=== PATIENT | female | born 1955 | race Two or more races ===

== ENCOUNTER 2018-11-05 17:16 | Emergency (ER) | payer SELFPAY ==
[~2018-11-05] VITALS: Ht 154.9 cm; Wt 79.4 kg
[2018-11-05 17:28] VITALS: BP 173/85
[2018-11-05] MEDS ORDERED: NAPROXEN 500 MG TABLET PO STA (17:33)
--- NOTE | 2018-11-05 17:58 | PHYS DOC ---
Past Medical History Past Medical History: No Pertinent History (EVANS INFANTE APRN) Past Surgical History: Appendectomy (EVANS INFANTE APRN) Alcohol Use: Rarely Drug Use: None (EVANS INFANTE APRN) Adult General Chief Complaint Chief Complaint: KNEE INJURY HPI HPI Patient is a 63 year old female who presents to the emergency department with complaints of right knee pain and swelling after she slipped on wet surface at the store and fell forward twisting her right knee. Patient denies any head pain, neck pain, loss of consciousness, back pain, shortness of breath, dizziness, or hip pain. Currently she rates her pain a 5 out of 10 on the pain scale, she has not taken anything for relief of pain prior to arrival. (EVANS INFANTE APRN) Review of Systems Review of Systems Constitutional: Denies fever or chills [] Musculoskeletal: Denies back pain; see history of present illness Integument: Denies rash or skin lesions [] Neurologic: Denies headache, focal weakness or sensory changes [] (EVANS INFANTE APRN) Current Medications Current Medications Current Medications Medications (Trade) Dose Ordered Sig/Kerwin Start Time Stop Time Status Last Admin Dose Admin Naproxen (Naprosyn) 500 mg 1X STAT 11/05/18 17:33 11/05/18 17:45 DC 11/05/18 17:41 500 MG (ZECHARIAH CULLEN DO) Allergies Allergies Allergies Coded Allergies Type Severity Reaction Last Updated Verified No Known Drug Allergies 11/05/18 No (ZECHARIAH CULLEN DO) Physical Exam Physical Exam Constitutional: Well developed, well nourished, no acute distress, non-toxic appearance. [] HENT: Normocephalic, atraumatic, bilateral external ears normal, nose normal. [] Eyes: conjunctiva normal, no discharge. [] Neck: Normal range of motion, no tenderness, supple, no stridor. [] Lungs & Thorax: Respirations even and unlabored, no retractions, no respiratory distress Skin: Warm, dry, no erythema, no rash. [] Back: No tenderness to palpation of spine Extremities: No cyanosis, no clubbing, ROM intact; 1+ edema to the anterior right knee, anterior knee tender to palpation, increased pain with range of motion of right knee Neurologic: Alert and oriented X 3, normal motor function, normal sensory functi on, no focal deficits noted. [] Psychologic: Affect normal, judgement normal, mood normal. [] (EVANS INFANTE APRN) Current Patient Data Vital Signs Vital Signs Date Time Temp Pulse Resp B/P (MAP) Pulse Ox O2 Delivery O2 Flow Rate FiO2 11/05/18 17:28 97.8 61 18 173/85 (114) 98 Room Air 97.8 (ZECHARIAH CULLEN DO) EKG EKG [] (EVANS INFANTE APRN) Radiology/Procedures Radiology/Procedures X-ray negative for acute findings or fracture read by Dr. Cullen. [] (EVANS INFANTE APRN) Course & Med Decision Making Course & Med Decision Making Pertinent Labs and Imaging studies reviewed. (See chart for details) R knee contusion Jaxon wrap applied in the ER. Pt reports relief of pain after naproxen. Recommend rest, ice, and elevate. Follow up with Dr. Zurita if sx persist. Pt's family and Patient verbalized an understanding of home care, medications, follow-up, and return to ED instructions and was in agreement with the plan of care. [] (EVANS INFANTE APRN) Dragon Disclaimer Dragon Disclaimer This electronic medical record was generated, in whole or in part, using a voice recognition dictation system. (EVANS INFANTE APRN) Departure Departure Impression: Primary Impression: Contusion of right knee, initial encounter Disposition: HOME, SELF-CARE Condition: STABLE Referrals: HOMERO ZURITA MD Patient Instructions: Contusion, [id number], Knee Pain, [id number]-bf-[id number] Additional Instructions: Fill prescription(s) and use as directed. Recommend application of ice, elevation, and rest of affected extremity. Wear the jaxon wrap that was placed as needed for comfort. Follow up with Dr. Zurita if symptoms persist, return to the ER if your symptoms worsen. Scripts Naproxen (NAPROXEN) 375 Mg Tablet 375 MG PO BID PRN for PAIN for 10 Days, #20 TAB 0 Refills Prov: EVANS INFANTE APRN 11/05/18 Attending Signature Attending Signature I have reviewed the PA/MICROFILM CLERK's note and plan of care. I was available for consultation as needed during the patient's visit in the emergency department. I agree with the clinical impression, plan, and disposition. (ZECHARIAH CULLEN DO) EVANS INFANTE APRN Nov 05, 2018 17:58 ZECHARIAH CULLEN DO Nov 05, 2018 22:23
[2018-11-05] MEDS ORDERED: NAPR-695 PO (19:11)
--- NOTE | 2018-11-06 09:04 | RAD ---
EXAM: RIGHT KNEE, 3 VIEWS. HISTORY: Right knee pain after a fall. COMPARISON: None. FINDINGS: No fractures are identified. Joint spaces are maintained. Alignment is normal. There are small osteophytes along the medial and lateral compartments. A loose body within the anterior intercondylar notch measures 5 mm. Subchondral cyst is suspected along the patella. There is no clear joint effusion. IMPRESSION: 1. No fracture. 2. Findings consistent with mild osteoarthritis. 5 mm loose body in the anterior intercondylar notch. Electronically signed by: Sachin Goodwin MD (11/06/2018 9:01 AM) [facility]
== END 2018-11-05 19:18 | disposition home or self-care (01) ==
LOC: ER 17:16
DX: S80.01XA Contusion of right knee, initial encounter (principal); Z90.89 Acquired absence of other organs; W01.0XXA Fall on same level from slipping, tripping and stumbling without subsequent striking against object, initial encounter; Y93.89 Activity, other specified; Y92.512 Supermarket, store or market as the place of occurrence of the external cause; Y99.8 Other external cause status
CPT/HCPCS: 73562; 99284

== ENCOUNTER → 2019-12-13 | Outpatient (CLI) | payer MEDICARE ==
[2019-09-14 07:00] VITALS: BP 157/79
[~2019-12-13] MED LIST: NAPR-695 PO; NITR0.4T22 SL
== END | disposition home or self-care (01) ==
LOC: LAB 11:42
PROVIDERS: ATTEND Internal Medicine Gastroenterology
DX: Z01.818 Encounter for other preprocedural examination (principal); Z11.59 Encounter for screening for other viral diseases; R10.9 Unspecified abdominal pain
CPT/HCPCS: U0003-CS

== ENCOUNTER → 2019-12-16 | Day surgery (SDC) | payer MEDICARE ==
[~2019-12-16] MED LIST changes: +IV RINGERS,LACTATED 1000ML 1,000 ML IV SCH; +LIDOCAINE 2% PF 5 ML VIAL. ONE; +PROPOFOL 10 MG/ML (20ML) VIAL. IV ONE
[2019-12-16 09:29] VITALS: BP 131/66
--- NOTE | 2019-12-16 09:29 | HP ---
ADMIT DATE: 12/16/2019 REFERRING PHYSICIAN: Dr. Mchugh REASON FOR ADMISSION: GERD and colorectal screening. HISTORY OF PRESENT ILLNESS: This is a 64-year-old female with past medical history significant for reflux, status post appendectomy, seen for screening colon exam. Bowel habits are regular without diarrhea or constipation other than some mild right lower quadrant abdominal pain. In addition, she has had increased reflux with her diabetes. She takes [id number] remedies with improvement. She does not drink or smoke at this time. Denies any dysphagia. Continued issues. She requests additional evaluation. PAST MEDICAL HISTORY: Diabetes and hypertension. ALLERGIES: None. MEDICATIONS: Include nitroglycerin. SOCIAL HISTORY: Nonsmoker and nondrinker. FAMILY HISTORY: Noncontributory. REVIEW OF SYSTEMS: Per records. PAST SURGICAL HISTORY: None. PHYSICAL EXAMINATION: GENERAL: Reveals a well-nourished and well-developed female who is alert, cooperative, in mild distress. VITAL SIGNS: Temperature 97, pulse 51, and respirations 20. LUNGS: Clear. CARDIOVASCULAR: Reveals an S1, S2 without S3, S4, or appreciable murmur. ABDOMEN: Reveals a soft abdomen. Normal bowel sounds without appreciable hepatosplenomegaly. EXTREMITIES: Reveals no cyanosis, clubbing, or edema. IMPRESSION AND PLAN: 1. Gastroesophageal reflux disease with diabetes. Differential includes with breakthrough symptoms, gastroesophageal reflux disease, Ma's, gastroparesis, peptic ulcer disease, and/or malignancy. Therefore, I recommend upper endoscopy with possible biopsy. 2. Colorectal screening is warranted at this time. Risks and benefits discussed. The patient is willing to proceed. JA SALDANA MD DR: YOLETTE/phan JOB#: [id number] / [id number]
--- NOTE | 2019-12-19 18:06 | PATHOLOGY ---
[facility] Accession Number: [id number] . 01 Material submitted: . esophagus - DISTAL ESOPHAGEAL BIOPSIES. Modifiers: distal . 01 Clinical history: . GERD, abdominal pain, CRC screen. . 02 Diagnosis: Esophageal biopsies, distal esophagus: - Reflux esophagitis. (M:jihan; 12/19/2019) [facility] 12/19/2019 1357 Local . 02 Comment: Sections of the distal esophageal biopsy reveal segments of focally tangentially oriented hyperplastic squamous esophageal mucosa. The findings are consistent with reflux esophagitis. There is no evidence of Ma's change, dysplasia, or malignancy. (JPM:jihan; 12/19/2019) . 02 Electronically signed: . Semaj Haile MD, Pathologist NPI- [id number] . 01 Gross description: . Received in formalin labeled "Kristin Daniel, distal esophageal BX" is a 1.0 x 0.6 x 0.1 cm aggregate of faustin-brown soft tissue fragments. The specimen is submitted entirely in A1. ([facility]; 12/18/2019) [facility] 12/18/2019 1001 Local . 02 Pathologist provided ICD-10: K21.0 . 02 CPT . 535007 Specimen Comment: A courtesy copy of this report has been sent to [phone] Specimen Comment: Report sent to Performed at: 01 [facility] [address], [place] [id number] MD Simeon Vegas MD Phone: [phone] Performed at: 02 [facility] [address] [place], [place] [id number] MD Semaj Haile MD Phone: [phone]
== END | disposition home or self-care (01) ==
LOC: ENDOS 07:40
PROVIDERS: ATTEND Internal Medicine Gastroenterology
DX: Z12.11 Encounter for screening for malignant neoplasm of colon (principal); K21.9 Gastro-esophageal reflux disease without esophagitis; I10 Essential (primary) hypertension; E11.9 Type 2 diabetes mellitus without complications; K29.70 Gastritis, unspecified, without bleeding; K25.9 Gastric ulcer, unspecified as acute or chronic, without hemorrhage or perforation; Z79.899 Other long term (current) drug therapy
CPT/HCPCS: 43239; 88305; G0121; J2704; 45378

== ENCOUNTER 2020-12-28 11:55 | Emergency (ER) | payer MEDICARE, MEDICAID ==
[~2020-12-28] VITALS: Ht 160 cm; Wt 73.0 kg
[~2020-12-28 11:55] MED LIST changes: -IV RINGERS,LACTATED 1000ML 1,000 ML IV SCH; -LIDOCAINE 2% PF 5 ML VIAL. ONE; -PROPOFOL 10 MG/ML (20ML) VIAL. IV ONE
[2020-12-28 12:50] LABS: BILIRUBIN,URINE SMALL (NEG); CLARITY,URINE CLEAR; COLOR,URINE AMBER; NITRITE,URINE NEGATIVE (NEG); PH,URINE 5.5 (<5.0-8.0); PROTEIN,URINE NEGATIVE (NEG-TRACE); UROBILINOGEN,URINE 0.2 mg/dL (0.2 mg/dL)
[2020-12-28 13:07] LABS: BACTERIA,URINE MODERATE /HPF (0-FEW); RBC,URINE 0 /HPF (0-2)
--- NOTE | 2020-12-28 13:08 | PHYS DOC ---
Past Medical History Past Medical History: No Pertinent History Past Surgical History: Appendectomy Smoking Status: Current Some Day Smoker Alcohol Use: None Drug Use: None General Adult EDM: Chief Complaint: PAIN ON URINATION HPI: HPI: Patient is a 65 year old female who presents with last night began having low abdominal pain that is like a pinching feeling or burning when she urinates. She also has bilateral lower back pain when she is urinating. Patient denies nausea, vomiting, fever, blood in her urine, chest pain, shortness of air, cough, diarrhea, headache, dizziness. She has a history of hypertension, diabetes, appendectomy, smoker. She denies pain at this time. She does states she also has some frequent urination. Review of Systems: Review of Systems: Constitutional: Denies fever or chills. [] Eyes: Denies change in visual acuity. [] HENT: Denies nasal congestion or sore throat. [] Respiratory: Denies cough or shortness of breath. [] Cardiovascular: Denies chest pain or edema. [] GI: + Mid lower abdominal pain, denies nausea, vomiting, bloody stools or diarrhea. [] : +dysuria. [] Musculoskeletal: + Bilateral lower back pain or denies joint pain. [] Integument: Denies rash. [] Neurologic: Denies headache, focal weakness or sensory changes. [] Endocrine: Denies polyuria or polydipsia. [] Lymphatic: Denies swollen glands. [] Psychiatric: Denies depression or anxiety. [] Heart Score: C/O Chest Pain: No Risk Factors: Risk Factors: DM, Current or recent (<one month) smoker, HTN, HLP, family history of CAD, obesity. Risk Scores: Score 0 - 3: 2.5% MACE over next 6 weeks - Discharge Home Score 4 - 6: 20.3% MACE over next 6 weeks - Admit for Clinical Observation Score 7 - 10: 72.7% MACE over next 6 weeks - Early Invasive Strategies Allergies: Allergies: Allergies Coded Allergies Type Severity Reaction Last Updated Verified No Known Drug Allergies 12/16/19 No Physical Exam: PE: Constitutional: Well developed, well nourished, no acute distress, non-toxic appearance. [] HENT: Normocephalic, atraumatic, bilateral external ears normal, oropharynx moist, no oral exudates, nose normal. [] Eyes: PERRLA, EOMI, conjunctiva normal, no discharge. [] Neck: Normal range of motion, no tenderness, supple, no stridor. [] Cardiovascular:Heart rate regular rhythm, no murmur [] Lungs & Thorax: Bilateral breath sounds clear to auscultation [] Abdomen: Bowel sounds normal, soft, low mid tenderness, no masses, no pulsatile masses. [] Skin: Warm, dry, no erythema, no rash. [] Back: No tenderness, no CVA tenderness. [] Extremities: No tenderness, no cyanosis, no clubbing, ROM intact, no edema. [] Neurologic: Alert and oriented X 3, normal motor function, normal sensory function, no focal deficits noted. [] Psychologic: Affect normal, judgement normal, mood normal. [] Current Patient Data: Vital Signs: Vital Signs Date Time Temp Pulse Resp B/P (MAP) Pulse Ox O2 Delivery O2 Flow Rate FiO2 12/28/20 12:16 98.2 60 16 146/75 (87) 98 Room Air 98.2 EKG: EKG: [] Radiology/Procedures: Radiology/Procedures: [] Course & Med Decision Making: Course & Med Decision Making Pertinent Labs and Imaging studies reviewed. (See chart for details) See HPI. Alert and oriented x4. Ambulatory steady gait. Speaks in full clear sentences. No CVA tenderness. Patient states low mid abdominal pain with palpation is slight. Abdomen otherwise soft and nontender. Skin pink warm and dry. Afebrile. Nonseptic appearing. She states her blood sugars have been running very good. Patient received fluids for dehydration. She also received Rocephin IV. She will be treated. Patient is stable and in no distress. Blood work is unremarkable. [] Dragon Disclaimer: Dragismael Disclaimer: This electronic medical record was generated, in whole or in part, using a voice recognition dictation system. Departure Departure Impression: Primary Impression: Urinary tract infection Qualified Codes: N39.0 - Urinary tract infection, site not specified Disposition: HOME / SELF CARE / HOMELESS Condition: STABLE Referrals: NO PCP (PCP) Patient Instructions: Urinary Tract Infection Additional Instructions: FOLLOW UP WITH PRIMARY CARE IF NEEDED. DRINK PLENTY OF FLUIDS. TAKE MEDICATION PRESCRIBED AND WITH FOOD. Scripts Cephalexin (CEPHALEXIN) 500 Mg Capsule 1 CAP PO TID, #21 CAP Prov: BAFUS,NILS M CIRCUIT RIDER 12/28/20 NILS ESPARZA APRN Dec 28, 2020 13:08
[2020-12-28] MEDS ORDERED: IV NORMAL SALINE 1000ML BAG 1,000 ML IV ONE (13:15)
[2020-12-28] MEDS ORDERED: cefTRIAXone IV Push 1 GM VIAL. IVP ONE (13:15)
[2020-12-28 13:56] LABS: CREATININE 0.7 mg/dL (0.6-1.0); GFR 83.7; POTASSIUM 4.1 mmol/L (3.5-5.1)
[2020-12-28 13:58] LABS: BASO # 0.1 x10^3/uL (0.0-0.2); BASO % 1 % (0-3); EOS # 0.1 x10^3/uL (0.0-0.7); EOS % 1 % (0-3); HEMATOCRIT 40.5 % (36.0-47.0); HEMOGLOBIN 13.9 g/dL (12.0-15.5); LYMPH # 2.5 x10^3/uL (1.0-4.8); LYMPH % 24 % (24-48); MEAN CORPUSCULAR HEMOGLOBIN 30 pg (25-35); MEAN CORPUSCULAR HGB CONC 34 g/dL (31-37); MEAN CORPUSCULAR VOLUME 88 fL (79-100); MONO # 0.6 x10^3/uL (0.0-1.1); MONO % 6 % (0-9); NEUT # 7.1 x10^3/uL (1.8-7.7); NEUT % 69 % (31-73); PLATELET COUNT 184 x10^3/uL (140-400); RED BLOOD COUNT 4.58 x10^6/uL (3.50-5.40); RED CELL DISTRIBUTION WIDTH 12.8 % (11.5-14.5); WHITE BLOOD COUNT 10.3 x10^3/uL (4.0-11.0)
[2020-12-28 14:02] LABS: ALBUMIN 3.5 g/dL (3.4-5.0); ALBUMIN/GLOBULIN RATIO 0.9 (1.0-1.7); TOTAL BILIRUBIN 1.2 mg/dL (0.2-1.0); TOTAL PROTEIN 7.2 g/dL (6.4-8.2)
[2020-12-28] MEDS ORDERED: CEPH500C PO (14:18)
[2020-12-28 14:46] VITALS: BP 167/79
== END 2020-12-28 15:10 | disposition home or self-care (01) ==
LOC: ER 11:55
DX: N39.0 Urinary tract infection, site not specified (principal); F17.200 Nicotine dependence, unspecified, uncomplicated; Z90.89 Acquired absence of other organs
CPT/HCPCS: 36415; 80053; 81001; 85025; 87086; 96361; 96374; 99283; J0696; J7030

== ENCOUNTER 2021-04-27 20:30 | Emergency (ER) | payer MEDICARE, MEDICAID ==
[~2021-04-27] VITALS: Ht 160 cm; Wt 73.1 kg
[~2021-04-27 20:30] MED LIST changes: +CEPH500C PO
--- NOTE | 2021-04-27 21:21 | PHYS DOC ---
Past Medical History Past Medical History: No Pertinent History Past Surgical History: Appendectomy Smoking Status: Current Some Day Smoker Alcohol Use: None Drug Use: None General Adult EDM: Chief Complaint: SHOULDER INJURY HPI: HPI: 65-year-old female has medical history of tobacco use, presents the ED with her biological daughter, (patient consents to his/her/their knowledge and involvement in pts' medical care), with complaints of right anterior shoulder pain and right elbow pain after patient fell earlier today as well on an escalator. Patient states she fell backwards, banging her elbow. C/o painful elbow extension-prefers elbow flexion. Cannot recall last tetanus. States she did not hit her head or lose consciousness. Is not influence of any alcohol or drugs. Is not on any anticoagulants. Is right-hand dominant with no prior injury to right upper extremity. Patient speaks some Albanian and daughter is translating. I offered tobacco cloth reclaimer services, patient declined-requests daughter to translate. Review of Systems: Review of Systems: Constitutional: Denies fever or chills. [] Eyes: Denies change in visual acuity. [] HENT: Denies nasal congestion or sore throat. [] Respiratory: Denies cough or shortness of breath. [] Cardiovascular: Denies chest pain or edema. [] GI: Denies nausea or vomiting : Denies saddle anesthesia or incontinence Musculoskeletal: Denies back pain or flank pain. [] Integument: Denies diaphoresis or desquamation Neurologic: Denies headache, focal weakness or sensory changes. [] Endocrine: Denies polyuria or polydipsia. [] Lymphatic: Denies swollen glands. [] Psychiatric: Denies depression or anxiety. [] Heart Score: C/O Chest Pain: No Risk Factors: Risk Factors: DM, Current or recent (<one month) smoker, HTN, HLP, family history of CAD, obesity. Risk Scores: Score 0 - 3: 2.5% MACE over next 6 weeks - Discharge Home Score 4 - 6: 20.3% MACE over next 6 weeks - Admit for Clinical Observation Score 7 - 10: 72.7% MACE over next 6 weeks - Early Invasive Strategies Current Medications: Current Medications Medications (Trade) Dose Ordered Sig/Kerwin Start Time Stop Time Status Last Admin Dose Admin Acetaminophen/ Hydrocodone Bitart (Lortab 5/325) 1 tab 1X ONCE 04/27/21 21:30 04/27/21 21:31 04/27/21 21:13 1 TAB Allergies: Allergies: Allergies Coded Allergies Type Severity Reaction Last Updated Verified No Known Drug Allergies 12/16/19 No Physical Exam: PE: Constitutional: Well developed, well nourished, no acute distress, non-toxic appearance. HENT: Normocephalic, atraumatic, Eyes: PERRLA, EOMI, conjunctiva normal, no discharge. Neck: Normal range of motion, supple, Nexus C-spine criteria are negative: There is no post midline tenderness, the patient is not intoxicated, there is a normal level of alertness, there are no focal neurologic deficits and there are no distracting injuries Cardiovascular: S1/2 present, regular rhythm Lungs & Thorax: Speaking in full sentences, bilateral equal chest rise, no tachypnea or increased work of breathing Abdomen: soft, no tenderness, Skin: Warm, dry, abrasion over right lateral elbow, Back: No spinal step-offs or tenderness, no CVA tenderness. [] Extremities: Tenderness over right lateral elbow near site of abrasion, no deformity, no cyanosis, equal radial pulses, right hand and wrist with full ra nge of motion, reports difficulty extending right elbow and has right anterior shoulder discomfort, after analgesia patient with full range of motion of right shoulder and right elbow, median/radial/ulnar/axillary nerve sensation intact Neurologic: Alert and oriented X 3, normal motor function, normal sensory function, no focal deficits noted. [] Psychologic: Affect normal, judgement normal, mood-slightly anxious Current Patient Data: Vital Signs: Vital Signs Date Time Temp Pulse Resp B/P (MAP) Pulse Ox O2 Delivery O2 Flow Rate FiO2 04/27/21 21:13 18 97 Room Air EKG: EKG: [] Radiology/Procedures: Radiology/Procedures: []IMAGING REPORT Signed PATIENT: PIERO CORBIN ACCOUNT: [id number] : 1955 LOCATION: ER AGE: 65 SEX: F EXAM STATUS: REG ER ORD. PHYSICIAN: TIP CROOK DO REASON: right anterior shoulder pain PROCEDURE: CHEST AP ONLY Exam: Chest one view INDICATION: Right anterior shoulder pain TECHNIQUE: Frontal view of the chest Comparisons: None FINDINGS: The cardiomediastinal silhouette and pulmonary vessels are within normal limits. The lung and pleural spaces are clear. IMPRESSION: No acute cardiopulmonary process. Electronically signed by: Maryse Mayorga MD (04/27/2021 10:36 PM) NILARENARD DICTATED and SIGNED BY: MARYSE MAYORGA MD DATE: 04/27/[id number] 0 IMAGING REPORT Signed PATIENT: PIERO CORBIN ACCOUNT: [id number] : 1955 LOCATION: ER AGE: 65 SEX: F EXAM STATUS: REG ER ORD. PHYSICIAN: TIP CROOK DO REASON: right anterior shoulder pain PROCEDURE: ELBOW RIGHT 3V Exam: Right humerus 2 views. Right elbow 3 views. Right forearm 2 views. Right hand 3 views INDICATION: Right upper extremity pain TECHNIQUE: Frontal, lateral and oblique views of the right hand and right elbow. Frontal and lateral views the right humerus and right forearm. Comparisons: None FINDINGS: Hand: Bone mineralization is normal. No acute or healed fractures. Soft tissues are unremarkable. Joint spaces are well-maintained. Forearm: Bone mineralization is normal. No acute or healed fractures. Soft tissues are unremarkable. Joint spaces are well-maintained. Elbow: Bone mineralization is normal. No acute or healed fractures. Soft tissues are unremarkable. Joint spaces are well-maintained. Humerus: Bone mineralization is normal. No acute or healed fractures. Soft tissues are unremarkable. Joint spaces are well-maintained. IMPRESSION: 1. No acute osseous abnormality of the right hand. 2. No acute osseous abnormality of the right forearm. 3. No acute osseous abnormality of the right elbow. 4. No acute osseous abnormality of the right humerus. Electronically signed by: Maryse Mayorga MD (04/27/2021 10:34 PM) NILARENARD DICTATED and SIGNED BY: MARYSE MAYORGA MD DATE: 04/27/[id number] 0 Course & Med Decision Making: Course & Med Decision Making Pertinent Labs and Imaging studies reviewed. (See chart for details) Concern for blunt injury to right elbow and right shoulder with right elbow abrasion. Suspect soft tissue injury. After analgesia was given patient in full range of motion of her right upper extremity, is neurovascularly intact with normal cap refill. Will recommend rice instructions and conservative measures. Tetanus was updated in the emergency department. Will discharge home with strict ED return precautions were given for repeat injury, severe pain or neurologic deficits. Encouraged urgent outpatient follow-up with PMD and orthopedic surgery if pain should persist beyond 10 to 14 days. Life- threatening processes were considered but are low suspicion at this time, given history, physical exam and ED workup. Pt was educated on all prescription medications and adverse effects. All patient's questions were answered and pt was stable at time of discharge. Life/limb-threatening differential includes but is not limited to, trauma (fracture, dislocation, laceration, compartment syndrome, tendon or ligament injury), neurovascular injury or deficitcva/tia, infection (osteomyelitis, abscess, cellulitis, septic arthritis, necrotizing fasciitis), deep vein thrombosis, renal/cardiac/liver disease, medication adverse effect, lymphedema/anasarca, vascular insufficiency or malignancy, I have spoken with the patient and/or caregivers. I explained the patient's condition, diagnoses and treatment plan based on the information available to me at this time. I have answered the patient and/or caregiver's questions and addressed any concerns. The patient and/or caregivers have a good understanding of patient's diagnosis, condition and treatment plan as can be expected at this point. Vital signs have been stable. Patient's condition is stable and appropriate for discharge from the emergency department. Patient will pursue further outpatient evaluation with primary care physician or other designated or consulting physician as outlined in the discharge instru ctions. The patient and/or caregivers are agreeable to this plan of care and follow-up instructions have been explained in detail. The patient and/or caregivers have received these instructions in written form and have expressed an understanding of the discharge instructions. The patient and/or caregivers are aware that any significant change of condition or worsening of symptoms should prompt immediate return to this or the closest emergency department or call to 911. Rickey Disclaimer: Rickey Disclaimer: This electronic medical record was generated, in whole or in part, using a voice recognition dictation system. Departure Departure Impression: Primary Impression: Right anterior shoulder pain Additional Impressions: Pain in right elbow Abrasion of right elbow Disposition: HOME / SELF CARE / HOMELESS Condition: STABLE Referrals: DEBBY CHEN III, DO (PCP) Follow-up with your primary care physician in 24 to 48 hours OR FOLLOW UP WITH FAMILY MEDICINE: [address], [address] [place] [address] Patient Instructions: Joint Sprain, VIS, Tetanus, Diphtheria (Td); Tetanus, Diphtheria, Pertussis (Tdap) - CDC Additional Instructions: FOLLOW UP WITH ORTHOPEDICS: FOR DEFINITIVE MANAGEMENT/if pain should persist, recommend repeat imaging Orthopaedic Surgery [address], [address] [place] [address] EMERGENCY DEPARTMENT GENERAL DISCHARGE INSTRUCTIONS Thank you for coming to [facility] Emergency Department (ED) today and trusting us with you care. We trust that you had a positive experience in our Emergency Department. If you wish to speak to the department management, you may call the Director at [phone]. YOUR FOLLOW UP INSTRUCTIONS ARE FOLLOWS: 1. Do you have a private Doctor? If you do not have a private doctor, please ask for a resource list of physicians or clinics that may be able to assist you with f ollow up care. 2. The Emergency Physicain has interpreted your x-rays. The X-Ray specialist will also review them. If there is a change in the findings, you will be notified in 48 hours when at all possible. 3. A lab test or culture has been done, your results will be reviewed and you will be notified if you need a change in treatment. ADDITIONAL INSTRUCTIONS AND INFORMATION: 1. Your care today has been supervised by a physician who is specially trained in emergency care. Many problems require more than one evaluation for a complete diagnosis and treatment. We recommend that you schedule your follow up appointment as recommended to ensure complete treatment of you illness or injury. If you are unable to obtain follow up care and continue to have a problem, or if your condition worsens, we recommend that you return to the ED. 2. We are not able to safely determine your condition over the phone nor are we able to give sound medical advice over the phone. For these safety reasons, if you call for medical advice we will ask you to come to the ED for further evaluation. 3. If you have any questions regarding these discharge instructions please call the ED at [phone]. SAFETY INFORMATION: In the interest of safety, wellness, and injury prevention; we encourage you to wear your sealbelt, if you smoke; quite smoking, and we encourage family to use a protect parrish helmet for bicycling and other sporting events that present an increased risk for head injury. IF YOUR SYMPTOMS WORSEN OR NEW SYMPTOMS DEVELOP, OR YOU HAVE CONCERNS ABOUT YOUR CONDITION; OR IF YOUR CONDITION WORSENS WHILE YOU ARE WAITING FOR YOUR FOLLOW UP APPOINTMENT; EITHER CONTACT YOUR PRIMARY CARE DOCTOR, THE PHYSICIAN WHOSE NAME AND NUMBER YOU WERE GIVEN, OR RETURN TO THE ED IMMEDIATELY. [facility] DO Apr 27, 2021 21:21
[2021-04-27] MEDS ORDERED: HYDROcodone/APAP 5/325MG 1 TAB TABLET PO ONE (21:30)
[2021-04-27 22:28] VITALS: BP 145/63
--- NOTE | 2021-04-27 22:36 | RAD ---
Exam: Right humerus 2 views. Right elbow 3 views. Right forearm 2 views. Right hand 3 views INDICATION: Right upper extremity pain TECHNIQUE: Frontal, lateral and oblique views of the right hand and right elbow. Frontal and lateral views the right humerus and right forearm. Comparisons: None FINDINGS: Hand: Bone mineralization is normal. No acute or healed fractures. Soft tissues are unremarkable. Joint spa vonnie are well-maintained. Forearm: Bone mineralization is normal. No acute or healed fractures. Soft tissues are unremarkable. Joint spa vonnie are well-maintained. Elbow: Bone mineralization is normal. No acute or healed fractures. Soft tissues are unremarkable. Joint spa vonnie are well-maintained. Humerus: Bone mineralization is normal. No acute or healed fractures. Soft tissues are unremarkable. Joint spa vonnie are well-maintained. IMPRESSION: 1. No acute osseous abnormality of the right hand. 2. No acute osseous abnormality of the right forearm. 3. No acute osseous abnormality of the right elbow. 4. No acute osseous abnormality of the right humerus. Electronically signed by: Maryse Meier MD (04/27/2021 10:34 PM) [place]
--- NOTE | 2021-04-27 22:39 | RAD ---
Exam: Chest one view INDICATION: Right anterior shoulder pain TECHNIQUE: Frontal view of the chest Comparisons: None FINDINGS: The cardiomediastinal silhouette and pulmonary vessels are within normal limits. The lung and pleural spaces are clear. IMPRESSION: No acute cardiopulmonary process. Electronically signed by: Maryse Meier MD (04/27/2021 10:36 PM) PILAR
[2021-04-27] MEDS ORDERED: DIPH,PERTUSS(ACELL),TET VAC/PF 0.5 ML SYRINGE. VAX IM ONE (23:30)
== END 2021-04-27 23:43 | disposition home or self-care (01) ==
LOC: ER 20:30
DX: S50.311A Abrasion of right elbow, initial encounter (principal); M25.511 Pain in right shoulder; R07.89 Other chest pain; F17.200 Nicotine dependence, unspecified, uncomplicated; W18.39XA Other fall on same level, initial encounter; Y93.89 Activity, other specified; Y92.89 Other specified places as the place of occurrence of the external cause; Y99.8 Other external cause status
CPT/HCPCS: 71045; 73060; 73080; 73090; 73130; 90471; 90715; 99285-25